=== PATIENT | female | born 1995 | race Caucasian/White ===

== ENCOUNTER → 2017-04-15 | Outpatient (CLI) | payer OTHER | LOC: HPND 10:30 | PROVIDERS: ATTEND Family Medicine | DX: O26.842 Uterine size-date discrepancy, second trimester (principal); O36.80X0 Pregnancy with inconclusive fetal viability, not applicable or unspecified; Z3A.14 14 weeks gestation of pregnancy | CPT/HCPCS: 76805 ==

== ENCOUNTER → 2017-05-15 | Outpatient (CLI) | payer OTHER | LOC: CDED 08:24 | PROVIDERS: ATTEND Family Medicine | DX: O24.111 Pre-existing type 2 diabetes mellitus, in pregnancy, first trimester (principal) | CPT/HCPCS: 97802 ==

== ENCOUNTER → 2017-05-23 | Outpatient (CLI) | payer OTHER, MEDICAID | LOC: HPND 09:26 | PROVIDERS: ATTEND Family Medicine | DX: O26.842 Uterine size-date discrepancy, second trimester (principal); O44.02 Complete placenta previa NOS or without hemorrhage, second trimester; Z3A.00 Weeks of gestation of pregnancy not specified | CPT/HCPCS: 76816 ==

== ENCOUNTER → 2017-07-24 | Outpatient (CLI) | payer MEDICAID | LOC: HPND 09:26 | PROVIDERS: ATTEND Family Medicine | DX: O35.1XX0 Maternal care for (suspected) chromosomal abnormality in fetus, not applicable or unspecified (principal) | CPT/HCPCS: 76816 ==

== ENCOUNTER 2017-08-05 17:15 | Emergency (ER) | payer MEDICAID ==
[~2017-08-05 17:15] MED LIST: ACCUMIS25; BLOOD GLUCOSE M1 KIT; BLOOD GLUCOSE T1 TES; GLIP5TAB8 PO; HYDR2.5O TOPICAL; PREN29TA PO
--- NOTE | 2017-08-05 17:50 | PD ---
HPI Chief Complaint Decreased Movement Date Seen: Aug 05, 2017 Travel History International Travel<30 Days: No Contact w/Intl Traveler<30Days: No History of Present Illness HPI Ms. Abreu is a 22-year-old female at 30/6 with an RESHMA of 10/08/17 based on first trimester ultrasound presents to the [facility] with the CC of decreased movement. She reports that over the last 2 days she is conducted kick counts every 2 hours and has not reached her goal of 10 kicks per 2 hours. She reports today she counted around 0900 10 kicks and then again at 1500 with 6 kicks. She is worried that something is wrong as her baby is typically very active, especially overnight which she was not active per her report last night. Otherwise she has no complaints and denies a complete review of systems. She endorses no loss of fluid, contractions, vaginal discharge, or vaginal bleeding at this time. She also denies any headaches, right upper quadrant pain , pitting edema, or other neurological symptoms. She does endorse a history of diabetes mellitus and currently takes glipizide twice a day. Unfortunately, due to insurance restrictions she is unable to monitor her glucose. She states that early in when she was monitoring her glucose her fasting glucose range from 70-90 with her postprandials ranging from 140-160. Para: 0 : 1 History Past Medical History Narrative Medical Past Medical History: Diabetes mellitus Obstetric History Obstetric History OB History: History of irregular menstrual cycles with unknown LMP prior to presentation today, best estimate is around 02/01/2017 No history of STDs Past Surgical History Narrative Surgical Surgical History: Denies Family History Narrative Family History Family History: Family history significant for diabetes Social History Narrative Social History Social History: Patient is adopted Living Situation: Lives with boyfriend, feels safe at home Alcohol: Denies Tobacco: Denies Illicit: Denies Allergies-Medications (Allergen,Severity, Reaction): Coded Allergies: No Known Allergies (Unverified , 08/05/17) Review of Systems Except as stated in HPI: all other systems reviewed are Neg Physical Exam Narrative GENERAL: Well-nourished, well-developed patient. SKIN: Warm and dry. HEAD: Normocephalic and atraumatic. EYES: No scleral icterus. No injection or drainage. ENT: No nasal drainage noted. Mucous membranes pink. Airway patent. NECK: Supple, trachea midline. No JVD. CARDIOVASCULAR: Regular rate and rhythm without murmurs, gallops, or rubs. RESPIRATORY: Breath sounds equal bilaterally. No accessory muscle use. ABDOMEN/GI: Abdomen soft, non-tender, bowel sounds present, no rebound, no guarding Gravid to 30 GENITOURINARY: External Genitalia: intact and normal in appearance Uterine Contractions: None on FHT FHT's: Category: 1 Baseline: 150s Reactive: Positive Variability: Moderate Decels: None EXTREMITIES: No cyanosis or edema. BACK: Nontender without obvious deformity. No CVA tenderness. NEUROLOGICAL: Awake and alert. Motor and sensory grossly within normal limits. Five out of 5 muscle strength in all muscle groups. Normal speech. Data Data Vital Signs Reviewed: Yes [facility] Medical Record Reviewed: Yes Plan Ms. Abreu is a 22-year-old female at 30/6 with an RESHMA of 10/08/17 based on first trimester ultrasound presents to the [facility] with the CC of decreased movement. 1. IUP at 30 weeks -Exam reassuring -Encourage oral hydration and PNV -FHT category 1, reassuring -Continue routine OB care -Patient re-educated and given information on kick counts should. Encouraged mom to count when her baby is most active. Reassuring patient has had a kick count today that was 10 per 2 hours. 2. DM -Continue Glipizide 5mg BID -2 hour fasting glucose: 145 -Start weekly BPP and NST -Recommend high risk laboratory evaluations including LFTs, CBC, and A1c -Recommend high risk US with echo -Recommend EKG and eye exam as well -Patient to be discharged home and encouraged to follow up with PCP within 1 week. SDW: Dr. Vann Diagnosis Diagnosis: Primary Impression: 30 weeks gestation of Additional Impression: Diabetes mellitus Disposition: 01 DISCHARGE HOME Condition: Stable Patient Instructions: Movement (ED), General Instructions, Early Labor Signs (ED), Having Your Baby: The Labor Process (GEN), Gestational Diabetes Diet (GEN), Gestational Diabetes (ED) Mark Vu MD R2 Aug 05, 2017 17:50
[2017-08-21] MEDS ORDERED: LANCETS1 MI1 (17:12)
[2017-08-21] MEDS ORDERED: BLOOD GLUCOSE T1 TES (17:12)
[2017-08-21] MEDS ORDERED: GLIP5TAB8 PO (17:12)
[2017-08-21] MEDS ORDERED: GLUCMIS7 (17:12)
== END 2017-08-05 19:03 | disposition home or self-care (01) ==
LOC: HOBED 17:15
DX: O24.913 Unspecified diabetes mellitus in pregnancy, third trimester (principal); Z3A.30 30 weeks gestation of pregnancy
CPT/HCPCS: 82948; 99284

== ENCOUNTER 2017-09-30 20:02 | Inpatient (IN) | payer MEDICAID ==
[~2017-09-30] VITALS: Ht 149.9 cm; Wt 93.0 kg
[~2017-09-30 20:02] MED LIST changes: -ACCUMIS25; -BLOOD GLUCOSE M1 KIT; +GLUCMIS7; -HYDR2.5O TOPICAL; +LANCETS1 MI1
[2017-09-30 20:30] VITALS: BP 128/77; PULSE 81
[2017-09-30 20:45] VITALS: RESP 18; TEMP 98.2
[2017-09-30] MEDS ORDERED: SODIUM CHLOR 0.9% 1000 ML INJ 1,000 ML OTHER PRN (21:09)
[2017-09-30] MEDS ORDERED: LACTATED RINGER'S 1000 ML INJ 1,000 ML IV SCH (21:13)
[2017-09-30] MEDS ORDERED: LACTATED RINGER'S 1000 ML INJ 1,000 ML IV PRN (21:13)
[2017-09-30] MEDS ORDERED: LIDOCAINE HCL 1% 50 ML VIAL INFIL PRN (21:15)
[2017-09-30] MEDS ORDERED: SODIUM CHLORID 0.9% 500 ML INJ 500 ML IV PRN (21:15)
[2017-09-30] MEDS ORDERED: CITRIC ACID-SODIUM CITRATE LIQ 30 ML UDC PO SCH (21:15)
[2017-09-30] MEDS ORDERED: SODIUM CHLORIDE 0.9% FLUSH 10 ML FLUSH IV FLUSH PRN (21:15)
[2017-09-30] MEDS ORDERED: MINERAL OIL 10 ML VIAL TOPICAL PRN (21:15)
[2017-09-30] MEDS ORDERED: OXYTOCIN 30 UNITS-500ML PREMIX 500 ML IV ONE (21:15)
[2017-09-30] MEDS ORDERED: LIDOCAINE HCL 1% 50 ML VIAL I-DERMAL PRN (21:15)
--- NOTE | 2017-09-30 21:27 | HHI.HP ---
HPI Chief Complaint "Baby is getting ready to have bowel movement" Travel History International Travel<30 Days: No Contact w/Intl Traveler<30Days: No History of Present Illness HPI Patient is a 22 year old at 38/6 who presents today from [facility] for induction of labor. The patient states "they told me the baby is getting ready to have a bowel movement so they sent me over here." The [facility] reports notes "Incidental finding of prominent hyperechoic bowel" and recommends delivery at 39 weeks. She reports some occasional abdominal tightening "similar to fransisco simpson" which occurs approximately 3 times an hour. Denies large discharge of fluid from her vagina, some minimal whitish discharge noted to be normal for her . No dysuria, increase in frequency, change in smell or color. The patient denies nausea, vomiting, fever , chills, chest pain, shortness of breath. Mild constipation normal for her current . Weeks Gestation: 38 Para: 0 : 1 Miscarriage: 0 : 0 History Past Medical History Narrative Medical Diabetes mellitus Obstetric History Obstetric History History of irregular menstrual cycles with unknown LMP prior to presentation today, best estimate is around 02/01/2017 No history of STDs GBS - Past Surgical History Surgical History: No Previous Surgery Family History Family History: Negative Social History Alcohol Use: No Tobacco Use: No Substance Abuse: No Allergies-Medications (Allergen,Severity, Reaction): Coded Allergies: No Known Allergies (Unverified Adverse Reaction, Unknown, 09/11/17) Home Meds Active Scripts Blood-Glucose Meter (Blood Glucose Meter) 1 Each Each, UNIT BID, #1 Prov:Martha Puente MD, R3 08/21/17 Lancets (Lancets) 1 Mis Mis, EA .ROUTE DIRECTED for Blood Sugar Management, # 1 0 Refills test 2x/day Prov:Martha Puente MD, R3 08/21/17 Blood Glucose Test Strips (Blood Glucose Test Strips) Strips Strip, EA .ROUTE DIRECTED for Blood Sugar Management, #1 6 Refills Test up to 2x/day Prov:Martha Puente MD, R3 08/21/17 Glipizide (Glipizide) 5 Mg Tab, 5 MG PO BIDAC for Blood Sugar Management, #60 TAB 1 Refill Take 15 minutes before a meal Prov:Martha Puente MD, R3 08/21/17 Vit-Iron Carbonyl ( Plus Iron 29-1 mg) 1 Tab Tab, 1 TAB PO DAILY for Nutritional Supplement, #30 TAB 11 Refills Prov:Martha Puente MD, R3 04/03/17 Review of Systems General / Constitutional: No: Fever, Chills Eyes: No: Diploplia, Blurred Vision, Visual changes HENT: No: Headaches, Vertigo, Lightheadedness Cardiovascular: No: Chest Pain or Discomfort, Palpitations, Tachycardia Respiratory: No: Cough, Short of Breath, Wheezing Gastrointestinal: Constipation (minimal), No: Nausea, Vomiting, Diarrhea, Abdominal Pain, Hematemesis, Hematochezia, Changes in Bowel Habits Genitourinary: No: Urgency, Frequency, Dysuria, Hematuria Musculoskeletal: Cramping (3 times per hour), No: Limited ROM, Weakness Skin: No Rash, No Itching Neurologic: No: Weakness, Dizziness Psychiatric: No: Anxiety, Depression Endocrine: No: Heat Intolerance, Cold Intolerance, Polyuria Hematologic/Lymphatic: No Easy Bruising, No Lymph Node Enlargement Physical Exam Narrative GENERAL: Well-nourished, well-developed patient. SKIN: Warm and dry. HEAD: Normocephalic and atraumatic. EYES: No scleral icterus. No injection or drainage. ENT: No nasal drainage noted. Mucous membranes pink. Airway patent. NECK: Supple, trachea midline. No JVD. CARDIOVASCULAR: Regular rate and rhythm without murmurs, gallops, or rubs. RESPIRATORY: Breath sounds equal bilaterally. No accessory muscle use. BREASTS: Bilateral exam showed no masses , no retractions, no nipple discharge. ABDOMEN/GI: Abdomen soft, non-tender, bowel sounds present, no rebound, no guarding GENITOURINARY: External Genitalia: intact and normal in appearance Cervix: posterior Dilatation: 1 Effacement: 50 Station: -3 Presentation: vertex Membranes: intact Uterine Contractions: occasional FHT's: Category: 1 Baseline: 145 Reactive: yes Variability: moderate Decels: none EXTREMITIES: No cyanosis or edema. BACK: Nontender without obvious deformity. No CVA tenderness. NEUROLOGICAL: Awake and alert. Motor and sensory grossly within normal limits. Normal speech. Caprini VTE Risk Assessment Caprini VTE Risk Assessment: No/Low Risk (score <= 1) Caprini Risk Assessment Model Point Value = 1 Point Value = 2 Point Value = 3 Point Value = 5 Age 41-60 Minor surgery BMI > 25 kg/m2 Swollen legs Varicose veins or History of unexplained or recurrent spontaneous Oral contraceptives or hormone replacement Sepsis (< 1 month) Serious lung disease, including pneumonia (< 1 month) Abnormal pulmonary function Acute myocardial infarction Congestive heart failure (< 1 month) History of inflammatory bowel disease Medical patient at bed rest Age 61-74 Arthroscopic surgery Major open surgery (> 45 min) Laparoscopic surgery (> 45 min) Malignancy Confined to bed (> 72 hours) Immobilizing plaster cast Central venous access Age >= 75 History of VTE Family history of VTE Factor V Leiden Prothrombin [id number] Lupus anticoagulant Anticardiolipin antibodies Elevated serum homocysteine Heparin-induced thrombocytopenia Other congenital or acquired thrombophilia Stroke (< 1 month) Elective arthroplasty Hip, pelvis, or leg fracture Acute spinal cord injury (< 1 month) Prophylaxis Regimen Total Risk Factor Score Risk Level Prophylaxis Regimen 0-1 Low Early ambulation 2 Moderate Order ONE of the following: *Sequential Compression Device (SCD) *Heparin 5000 units SQ BID 3-4 Higher Order ONE of the following medications: *Heparin 5000 units SQ TID *Enoxaparin/Lovenox 40 mg SQ daily (WT < 150 kg, CrCl > 30 mL/min) *Enoxaparin/Lovenox 30 mg SQ daily (WT < 150 kg, CrCl > 10-29 mL/min) *Enoxaparin/Lovenox 30 mg SQ BID (WT < 150 kg, CrCl > 30 mL/min) AND/OR *Sequential Compression Device (SCD) 5 or more Highest Order ONE of the following medications: *Heparin 5000 units SQ TID (Preferred with Epidurals) *Enoxaparin/Lovenox 40 mg SQ daily (WT < 150 kg, CrCl > 30 mL/min) *Enoxaparin/Lovenox 30 mg SQ daily (WT < 150 kg, CrCl > 10-29 mL/min) *Enoxaparin/Lovenox 30 mg SQ BID (WT < 150 kg, CrCl > 30 mL/min) AND *Sequential Compression Device (SCD) Data Data Vital Signs Reviewed: Yes Group B Strep: Negative Assessment/Plan Problem List: (1) 38 weeks gestation of ICD Codes: Z3A.38 - 38 weeks gestation of Status: Acute Assessment and Plan Patient is a 22 year old at 38/6 who presented from [facility] with the recommendation of induction at 39 weeks due to "Incidental finding of prominent hyperechoic bowel". -Admit to Labor and delivery -FHT category 1, reassuring -Induction of labor and expectant delivery -cytotec 25 MCG Q4 hours Discussed with Dr. Frank and Smith Rosenberg MD R1 Sep 30, 2017 21:27
[2017-09-30] MEDS ORDERED: SODIUM CHLOR 0.9% 1000 ML INJ 1,000 ML IV PRN (21:33)
[2017-09-30 21:48] LABS: AUTOMATED NEUTROPHIL # 5.7 TH/MM3 (1.8-7.7); BASOPHIL # 0.1 TH/MM3 (0-0.2); BASOPHIL % 0.6 % (0.0-2.0); EOSINOPHIL # 0.2 TH/MM3 (0-0.4); EOSINOPHIL % 1.5 % (0.0-4.0); HEMATOCRIT 42.3 % (35.0-46.0); HEMOGLOBIN 14.6 GM/DL (11.6-15.3); LYMPH % 36.5 % (9.0-44.0); LYMPHOCYTE # 3.7 TH/MM3 (1.0-4.8); MEAN CELL VOLUME 85.4 FL (80.0-100.0); MEAN CORPUSCULAR HEMOGLOBIN 29.4 PG (27.0-34.0); MEAN CORPUSCULAR HGB CONC 34.5 % (32.0-36.0); MEAN PLATELET VOLUME 11.6 FL (7.0-11.0); MONOCYTE # 0.5 TH/MM3 (0-0.9); NEUT % 56.4 % (16.0-70.0); PLATELET COUNT 114 TH/MM3 (150-450); RED BLOOD COUNT 4.96 MIL/MM3 (4.00-5.30); RED CELL DISTRIBUTION WIDTH 14.3 % (11.6-17.2); WHITE BLOOD COUNT 10.1 TH/MM3 (4.0-11.0)
[2017-09-30 22:05] LABS: BACTERIA, URINE MOD /hpf; BILIRUBIN, URINE NEG (NEG); BLOOD, URINE NEG (NEG); GLUCOSE,URINE NEG (NEG); KETONE, URINE NEG (NEG); MUCUS URINE FEW /lpf (OCC); NITRITE,URINE NEG (NEG); PH, URINE 5.5 (5.0-8.5); SQUAMOUS EPITHELIAL CELL URINE 2 /hpf (0-5); URINE COLOR YELLOW (YELLW/STRAW); URINE LEUKOCYTE ESTERASE NEG (NEG)
[2017-09-30 23:53] VITALS: BP 119/81; PULSE 89
[2017-10-01] VITALS (69 sets, daily range): BP systolic 92–148; BP diastolic 46–108; PULSE 62–247; RESP 16–20; TEMP 98.1–99.4; O2SAT 96–100
[2017-10-01] MEDS: MISOPROSTOL 100 MCG TAB VAGINAL SCH ×4 (00:15→09:15)
[2017-10-01] MEDS: LACTATED RINGER'S 1000 ML INJ 1,000 ML IV SCH ×3 (00:15→19:08)
--- NOTE | 2017-10-01 00:45 | HHI.PR ---
Subjective Remarks OB Hg attending The patient is a 22-year-old with intrauterine now at 39.0. [facility] recommended induction of labor at 39 weeks due to prominent bowel. The patient is an A2 diabetic well controlled on glipizide 5 mg twice daily. She reports her fasting sugars of are typically in the 80s and her one-hour postprandials in the 130s. We discussed at length the risks of vaginal delivery including but not limited to show dystocia which is more common in diabetic patients. We discussed the [facility] recommendations of recommendation with estimated weight is greater than 10 pounds. The patient reports this may weight 2 weeks ago of 6 lbs. 15 oz. We discussed the risks of shoulder dystocia should it occur including but not limited to permanent and irreversible neurological injury or brain damage. The patient acknowledges these risks and is willing for a trial of labor. The patient reports she is GBS negative. All the patient is questions were answered. Objective Vital Signs Date Time Temp Pulse Resp B/P (MAP) Pulse Ox O2 Delivery O2 Flow Rate FiO2 10/01/17 00:00 98.2 18 09/30/17 23:53 89 119/81 (94) 09/30/17 20:45 98.2 18 09/30/17 20:30 81 128/77 (94) Result Diagram: 09/30/172044 Larissa Joseph MD Oct 01, 2017 00:45
[2017-10-01] MEDS ORDERED: INSULIN NovoLIN REGULAR SUPPLEMENTAL SCALE SQ SCH (08:00)
[2017-10-01] MEDS: ONDANSETRON HCL 4 MG/2 ML VIAL IV PUSH PRN ×2 (08:33→19:08)
[2017-10-01] MEDS ORDERED: SODIUM CHLORIDE 0.9% FLUSH 10 ML FLUSH IV FLUSH SCH (09:00)
--- NOTE | 2017-10-01 11:22 | PD.LABORPN ---
Subjective Subjective Pt lying in bed. Feeling contractions. Doing well. Objective Vital Signs Vital Signs Date Time Temp Pulse Resp B/P (MAP) Pulse Ox O2 Delivery O2 Flow Rate FiO2 10/01/17 11:00 18 10/01/17 10:05 18 10/01/17 09:53 71 18 117/64 (81) 10/01/17 09:00 18 10/01/17 07:30 18 10/01/17 07:30 98.4 10/01/17 07:23 97 120/76 (91) 10/01/17 06:00 98.2 18 10/01/17 05:59 112 120/87 (98) 10/01/17 04:30 16 10/01/17 04:16 83 125/81 (96) Objective Pelvic Exam: Cervix: soft Dilatation: 5 Effacement: 80 Station: -2 Presentation: vertex Membranes: AROM performed Uterine Contractions: q2 minutes FHT's: Category: 1 Baseline: 150 Reactive: yes Variability: moderate Decels: none Weeks Gestation: 38 Pt started active labor?: No Medical induction of labor?: Yes Artificial rupture of membrane: Yes Assessment/Plan Problem List: (1) 38 weeks gestation of ICD Codes: Z3A.38 - 38 weeks gestation of Status: Acute Assessment and Plan 22 y/o G1 at 39 weeks admitted for induction of labor. Pt s/p Cytotec Category 1 FHT Cervical exam: 5/80/-2 -Bedside ultrasound performed confirmed cephalic presentation -IUPC and FSE placed -Continue accuchecks for GDM -Continuous FHT -Anticipate vaginal delivery Michael Crain MD Oct 01, 2017 11:22
[2017-10-01] MEDS ORDERED: ePHEDrine/NS 25 MG/5 ML SYRINGE ONE ×2 (13:39→13:50)
[2017-10-01] MEDS ORDERED: fentaNYL 2MCG-BUPIV 0.125% INJ 100 ML ONE (13:39)
[2017-10-01] MEDS ORDERED: BUPIVACAINE HCL PF 0.25% 10 ML VIAL ONE (13:50)
[2017-10-01] MEDS ORDERED: ePHEDrine/NS 25 MG/5 ML SYRINGE IV PUSH PRN (14:30)
[2017-10-01] MEDS ORDERED: DO NOT ADMINISTER ANTICOAGULANTS PRN (14:30)
[2017-10-01] MEDS ORDERED: NO SYSTEM NARCOTICS PRN (14:30)
[2017-10-01] MEDS ORDERED: fentaNYL 2MCG-BUPIV 0.125% 100 ML EPIDURAL SCH (14:30)
--- NOTE | 2017-10-01 15:03 | PD.LABORPN ---
Subjective Subjective Patient resting comfortably in bed. Epidural in place. No acute concerns at this time. Objective Vital Signs Vital Signs Date Time Temp Pulse Resp B/P (MAP) Pulse Ox O2 Delivery O2 Flow Rate FiO2 10/01/17 14:22 18 10/01/17 14:20 86 122/77 (92) 10/01/17 14:20 74 10/01/17 14:18 84 113/69 (84) 10/01/17 14:15 94 102/66 (78) 10/01/17 14:15 96 10/01/17 14:13 96 118/77 (91) 10/01/17 14:10 247 10/01/17 14:10 88 128/79 (95) 10/01/17 14:05 87 128/77 (94) 10/01/17 14:04 18 10/01/17 14:00 98.4 10/01/17 14:00 69 10/01/17 14:00 86 121/76 (91) 10/01/17 13:55 18 10/01/17 13:55 89 125/81 (96) 10/01/17 13:55 90 10/01/17 13:00 18 10/01/17 11:45 71 18 106/64 (78) 10/01/17 11:45 98.4 10/01/17 11:00 18 10/01/17 10:05 18 10/01/17 09:53 71 18 117/64 (81) 10/01/17 09:00 18 10/01/17 07:30 18 10/01/17 07:30 98.4 10/01/17 07:23 97 120/76 (91) Objective Pelvic Exam: Cervix: [-] Dilatation: [-] Effacement: [-] Station: [-] Presentation: [-] Membranes: AROM Uterine Contractions: q2-3min FHT's: Category: 1 Baseline: 145 Reactive: accels present Variability: moderate Decels: none Weeks Gestation: 39 Pt started active labor?: No Medical induction of labor?: Yes (per MFM due to possible meconium in fluid on ultrasound and prominent hyperechoic bowel) Artificial rupture of membrane: Yes (clear) Artificial ROM date: Oct 01, 2017 Artifical ROM time: 10:30 Assessment/Plan Problem List: (1) 38 weeks gestation of ICD Codes: Z3A.38 - 38 weeks gestation of Status: Acute Plan: 22 y/o at 39/0 admitted of induction of labor per MFM due to possible meconium in amniotic fluid and prominent hyperechoic bowel 1. IUP: * cat 1 tracing reassuring * s/p cytotec * repeat pelvic exam once gonzalez is placed * good contraction pattern, labor augmentation not needed at this time * AROM with clear fluids * s/p IUPC and FSE 2. GBS negative 3. DM 2 controlled with glipizide * continue accuchecks Expect vaginal delivery dw Dr. Fernandez (2) Type 2 diabetes mellitus during , antepartum ICD Codes: O24.119 - Pre-existing type 2 diabetes mellitus, in , unspecified trimester Martha Puente MD, R3 Oct 01, 2017 15:03
[2017-10-01] MEDS ORDERED: OXYTOCIN 30 UNITS-500ML PREMIX 500 ML ONE ×2 (16:33→21:25)
[2017-10-01] MEDS ORDERED: OXYTOCIN 30 UNITS/NS 500ML PREMIX IV PRN (17:00)
[2017-10-01] MEDS ORDERED: LIDOCAINE HCL 1.5% PF SOLN 20 ML AMP ONE (18:36)
--- NOTE | 2017-10-01 18:59 | PD.LABORPN ---
Subjective Subjective Patient resting comfortably in bed, in no acute distress. No acute concerns at this time Objective Vital Signs Vital Signs Date Time Temp Pulse Resp B/P (MAP) Pulse Ox O2 Delivery O2 Flow Rate FiO2 10/01/17 18:44 98.4 18 10/01/17 18:30 86 126/71 (89) 10/01/17 18:15 18 10/01/17 18:00 95 148/98 (115) 10/01/17 17:45 18 10/01/17 17:31 76 112/62 (79) 10/01/17 17:07 18 10/01/17 17:00 75 105/64 (78) 10/01/17 16:45 18 10/01/17 16:40 67 101/46 (64) 10/01/17 16:35 70 10/01/17 16:30 145/108 (120) 10/01/17 16:30 78 10/01/17 16:15 18 10/01/17 16:10 77 10/01/17 16:05 70 10/01/17 16:00 130/77 (94) 10/01/17 16:00 66 10/01/17 15:42 18 10/01/17 15:40 65 10/01/17 15:35 67 10/01/17 15:30 98.5 65 122/71 (88) 10/01/17 15:25 62 10/01/17 15:20 64 10/01/17 15:15 77 123/74 (90) 10/01/17 15:00 18 10/01/17 14:55 77 10/01/17 14:50 77 10/01/17 14:45 69 117/62 (80) 10/01/17 14:40 81 10/01/17 14:35 80 10/01/17 14:30 86 119/71 (87) 10/01/17 14:22 18 10/01/17 14:20 86 122/77 (92) 10/01/17 14:20 74 10/01/17 14:18 84 113/69 (84) 10/01/17 14:15 94 102/66 (78) 10/01/17 14:15 96 10/01/17 14:13 96 118/77 (91) 10/01/17 14:10 247 10/01/17 14:10 88 128/79 (95) 10/01/17 14:05 87 128/77 (94) 10/01/17 14:04 18 10/01/17 14:00 98.4 10/01/17 14:00 69 10/01/17 14:00 86 121/76 (91) 10/01/17 13:55 18 10/01/17 13:55 89 125/81 (96) 10/01/17 13:55 90 10/01/17 13:00 18 10/01/17 11:45 71 18 106/64 (78) 10/01/17 11:45 98.4 10/01/17 11:00 18 Objective Pelvic Exam: based on last check at 1800 by nurse Cervix: [-] Dilatation: 8 Effacement: 90 Station: -2 Presentation: vertex Membranes: AROM Uterine Contractions: q2-4min FHT's: Category: 1 Baseline: 150 Reactive: [-] Variability: moderate Decels: none Weeks Gestation: 39 Pt started active labor?: No Medical induction of labor?: Yes (per MFM due to possible meconium in fluid on ultrasound and prominent hyperechoic bowel) Artificial rupture of membrane: Yes (clear) Artificial ROM date: Oct 01, 2017 Artifical ROM time: 10:30 Assessment/Plan Problem List: (1) 38 weeks gestation of ICD Codes: Z3A.38 - 38 weeks gestation of Status: Acute Plan: 22 y/o at 39/0 admitted of induction of labor per MFM due to possible meconium in amniotic fluid and prominent hyperechoic bowel 1. IUP: * cat 1 tracing reassuring, there may * s/p cytotec * dilation unchanged, concern for possible failure to progress * labor augmentation with pitocin * AROM with clear fluids * s/p IUPC and FSE 2. GBS negative 3. DM 2 controlled with glipizide * continue accuchecks Hopeful for vaginal delivery but patient will need a C/S if she does not have significant change in the next hour or so. dw Dr. Fernandez (2) Type 2 diabetes mellitus during , antepartum ICD Codes: O24.119 - Pre-existing type 2 diabetes mellitus, in , unspecified trimester Martha Puente MD, R3 Oct 01, 2017 18:59
[2017-10-01] MEDS ORDERED: MORPHINE SULFATE PF 5 MG/10 ML VIAL ONE (19:44)
[2017-10-01] MEDS: CEFAZOLIN INJ 2,000 MG in SODIUM CHLORIDE 0.9% INJ 100 ML IV SCH ×2 (20:00→21:00)
[2017-10-01] MEDS ORDERED: EPIDURAL-NO SYSTEMIC NARCOTICS PRN ×2 (20:30→20:45)
[2017-10-01] MEDS ORDERED: EPIDURAL-DIPHENHYDRAMINE HCL 50 MG/ML VIAL IV PUSH PRN ×2 (20:30→20:45)
[2017-10-01] MEDS ORDERED: EPIDURAL-DIPHENHYDRAMINE HCL 50 MG CAP PO PRN ×2 (20:30→20:45)
[2017-10-01] MEDS ORDERED: EPIDURAL-NALOXONE HCL 0.4 MG/ML AMP IV PUSH PRN ×2 (20:30→20:45)
[2017-10-01] MEDS ORDERED: EPIDURAL-DO NOT ADMINISTER ANTICOAGULANTS PRN ×2 (20:30→20:45)
[2017-10-01] MEDS ORDERED: SODIUM CHLORIDE 0.9% FLUSH 10 ML FLUSH IV FLUSH PRN (21:00)
[2017-10-01] MEDS ORDERED: OXYTOCIN 30 UNITS-500ML PREMIX 500 ML IV ONE (21:00)
[2017-10-01] MEDS ORDERED: oxyCODONE/ACETAMINOPHEN 5 MG/325 MG TAB PO PRN (21:00)
[2017-10-01] MEDS ORDERED: ACETAMINOPHEN 325 MG TAB PO PRN (21:00)
[2017-10-01] MEDS: SODIUM CHLORIDE 0.9% FLUSH 10 ML FLUSH IV FLUSH SCH (21:00)
[2017-10-01] MEDS ORDERED: ACETAMINOPHEN 1000 MG/100 ML 100 ML IV ONE (21:33)
[2017-10-01] MEDS ORDERED: KETOROLAC TROMETHAMINE 60 MG/2 ML (IM) VIAL IM ONE ×2 (22:04→22:21)
[2017-10-02] VITALS (10 sets, daily range): BP systolic 101–123; BP diastolic 60–77; PULSE 68–93; RESP 16–20; TEMP 97.7–98.6; O2SAT 97
[2017-10-02] MEDS ORDERED: LACTATED RINGER'S 1000 ML INJ 1,000 ML IV SCH (01:59)
[2017-10-02] MEDS: ONDANSETRON HCL 4 MG/2 ML VIAL IV PUSH PRN ×2 (02:15→07:24)
[2017-10-02 04:14] LABS: AUTOMATED NEUTROPHIL # 19.7 TH/MM3 (1.8-7.7); BASOPHIL % 0.1 % (0.0-2.0); HEMATOCRIT 34.9 % (35.0-46.0); LYMPH % 10.2 % (9.0-44.0); LYMPHOCYTE # 2.4 TH/MM3 (1.0-4.8); MEAN CELL VOLUME 85.4 FL (80.0-100.0); MEAN CORPUSCULAR HEMOGLOBIN 29.3 PG (27.0-34.0); MEAN CORPUSCULAR HGB CONC 34.3 % (32.0-36.0); MEAN PLATELET VOLUME 10.6 FL (7.0-11.0); MONO % 5.2 % (0.0-8.0); MONOCYTE # 1.2 TH/MM3 (0-0.9); NEUT % 84.5 % (16.0-70.0); PLATELET COUNT 92 TH/MM3 (150-450); RED BLOOD COUNT 4.09 MIL/MM3 (4.00-5.30); RED CELL DISTRIBUTION WIDTH 14.4 % (11.6-17.2); WHITE BLOOD COUNT 23.3 TH/MM3 (4.0-11.0)
[2017-10-02 04:33] LABS: BICARBONATE 21.8 MEQ/L (21.0-32.0); CREATININE 0.94 MG/DL (0.50-1.00)
[2017-10-02] MEDS: CEFAZOLIN INJ 2,000 MG in SODIUM CHLORIDE 0.9% INJ 100 ML IV SCH ×3 (05:00→14:45)
[2017-10-02] MEDS ORDERED: OXYTOCIN 30 UNITS-500ML PREMIX 500 ML IV PRN (07:00)
[2017-10-02] MEDS: oxyCODONE/ACETAMINOPHEN 5 MG/325 MG TAB PO PRN ×2 (07:25→20:07)
--- NOTE | 2017-10-02 07:45 | HHI.OB ---
Subjective Remarks 22 year old female s/p C/S due failure to progress and decels at 39 wks gestation, POD1. AFVSS. Patient reports she is feeling well. Bleeding is decreasing and pain is well-controlled. She is breast and formula feeding. Baby currently in the NICU. Ambulating without difficulties. She is having nausea and vomiting x1 this AM.. She has not had a bowel movement. She has not passed gas. Denies chest pain, dysuria, shortness of breath, or calf pain. Objective Vitals/I&O Vital Signs Date Time Temp Pulse Resp B/P (MAP) Pulse Ox O2 Delivery O2 Flow Rate FiO2 10/02/17 05:57 18 10/02/17 04:26 16 10/02/17 04:00 97.7 10/02/17 04:00 68 117/73 (88) 97 10/02/17 02:42 18 10/02/17 02:30 18 10/02/17 00:40 18 10/02/17 00:30 18 10/01/17 23:07 68 20 131/63 (85) 96 10/01/17 23:07 98.9 10/01/17 22:30 96 18 121/62 (81) 98 10/01/17 22:28 99.4 10/01/17 22:15 96 18 112/58 (76) 97 10/01/17 22:00 86 18 98 10/01/17 22:00 110/56 (74) 10/01/17 21:45 18 10/01/17 21:45 100 10/01/17 21:45 96 115/59 (77) 10/01/17 21:30 100 10/01/17 21:30 85 109/55 (73) 10/01/17 21:30 20 10/01/17 21:15 100 10/01/17 21:15 116/56 (76) 10/01/17 21:10 99 10/01/17 21:10 118/64 (82) 10/01/17 21:10 98.6 117 20 10/01/17 19:34 18 10/01/17 19:31 117 92/52 (65) 10/01/17 19:30 98.4 18 10/01/17 19:17 104 118/71 (87) 10/01/17 19:15 18 10/01/17 19:00 98 127/78 (94) 10/01/17 18:44 98.4 18 10/01/17 18:30 86 126/71 (89) 10/01/17 18:15 18 10/01/17 18:00 95 148/98 (115) 10/01/17 17:45 18 10/01/17 17:31 76 112/62 (79) 10/01/17 17:07 18 10/01/17 17:00 75 105/64 (78) 10/01/17 16:45 18 10/01/17 16:40 67 101/46 (64) 10/01/17 16:35 70 10/01/17 16:30 145/108 (120) 10/01/17 16:30 78 10/01/17 16:15 18 10/01/17 16:10 77 10/01/17 16:05 70 10/01/17 16:00 130/77 (94) 10/01/17 16:00 66 10/01/17 15:42 18 10/01/17 15:40 65 10/01/17 15:35 67 10/01/17 15:30 98.5 65 122/71 (88) 10/01/17 15:25 62 10/01/17 15:20 64 10/01/17 15:15 77 123/74 (90) 10/01/17 15:00 18 10/01/17 14:55 77 10/01/17 14:50 77 10/01/17 14:45 69 117/62 (80) 10/01/17 14:40 81 10/01/17 14:35 80 10/01/17 14:30 86 119/71 (87) 10/01/17 14:22 18 10/01/17 14:20 86 122/77 (92) 10/01/17 14:20 74 10/01/17 14:18 84 113/69 (84) 10/01/17 14:15 94 102/66 (78) 10/01/17 14:15 96 10/01/17 14:13 96 118/77 (91) 10/01/17 14:10 247 10/01/17 14:10 88 128/79 (95) 10/01/17 14:05 87 128/77 (94) 10/01/17 14:04 18 10/01/17 14:00 98.4 10/01/17 14:00 69 10/01/17 14:00 86 121/76 (91) 10/01/17 13:55 18 10/01/17 13:55 89 125/81 (96) 10/01/17 13:55 90 10/01/17 13:00 18 10/01/17 11:45 71 18 106/64 (78) 10/01/17 11:45 98.4 10/01/17 11:00 18 10/01/17 10:05 18 10/01/17 09:53 71 18 117/64 (81) 10/01/17 09:00 18 Result Diagram: 10/02/17 0350 10/02/17 0350 Objective Remarks GENERAL: Well-nourished, well-developed patient. CARDIOVASCULAR: Regular rate and rhythm without murmurs, gallops, or rubs. RESPIRATORY: Breath sounds equal bilaterally. No accessory muscle use. ABDOMEN/GI: Abdomen soft, non-tender, bowel sounds present. Incision: Clean, dry and intact. Fundus: Firm, non-tender at umbilicus. GENITOURINARY: Light to moderate bleeding. EXTREMITIES: No cyanosis or edema, non-tender, without signs of DVT. Medications and IVs Current Medications Medications (Trade) Dose Ordered Sig/Kay Route Start Time Stop Time Status Last Admin Lactated Ringer's 1,000 ml @ 100 mls/hr Q10H IV 10/02/17 01:59 10/02/17 21:58 10/01/17 23:40 Oxytocin 500 ml @ 100 mls/hr UNSCH X1 PRN IV 10/02/17 07:00 10/03/17 06:59 (NS Flush) 2 ml BID IV FLUSH 10/01/17 21:00 (NS Flush) 2 ml UNSCH PRN IV FLUSH 10/01/17 21:00 (Tylenol) 650 mg Q6H PRN PO 10/01/17 21:00 (Motrin) 600 mg Q6H PRN PO 10/01/17 21:00 (Percocet 5-325 Mg) 1 tab Q4H PRN PO 10/01/17 21:00 10/02/17 07:25 (Percocet 5-325 Mg) 2 tab Q4H PRN PO 10/01/17 21:00 (M-M-R Ii Inj) 0.5 ml ONCE ONCE SQ 10/02/17 16:00 10/02/17 16:01 (Zofran Inj) 4 mg Q6H PRN IV PUSH 10/01/17 21:00 10/02/17 07:24 Cefazolin Sodium 2000 mg/Sodium Chloride 120 ml @ 100 mls/hr Q8H IV 10/02/17 04:00 10/02/17 13:11 10/02/17 05:52 Assessment/Plan Problem List: (1) 38 weeks gestation of ICD Codes: Z3A.38 - 38 weeks gestation of Status: Acute Plan: 22yo female s/p C/S, POD 1 - AFVSS - Continue routine care - Motrin and Percocet PRN pain - Encourage OOB - Pelvic rest x 6 wks. Will need 1 week incision check. - Contraception: Undecided - Anticipate D/C in 2 days (2) Type 2 diabetes mellitus during , antepartum ICD Codes: O24.119 - Pre-existing type 2 diabetes mellitus, in , unspecified trimester Plan: -Glucose 116 -Continue to monitor Valencia Richard MD R1 Oct 02, 2017 07:45
--- NOTE | 2017-10-02 13:28 | MP ---
cc: PATRICK FERNANDEZ MD DATE OF SURGERY 10/01/2017 PREOPERATIVE DIAGNOSIS Failure to progress, failed induction, non-reassuring heart rate tracing, gestational diabetes, hyperechoic bowel. POSTOPERATIVE DIAGNOSIS Failure to progress, failed induction, non-reassuring heart rate tracing, gestational diabetes, hyperechoic bowel. PROCEDURE PERFORMED A primary low transverse section. SURGEON Patrick Fernandez Md FRONT OFFICE ASSOCIATE Dr. Vargas of [facility] ANESTHESIA Epidural PREOPERATIVE NOTE The patient is a 22-year-old at 39 weeks who presents as a referral from [facility] for induction at 39 weeks for hyperechoic bowel. This is the recommendation of maternal medicine. The patient has gestational diabetes diet controlled. She was induced, achieved a cervical dilation to 7 cm and then there was no further change her cervix over a 4-5-hour period and the heart rate tracing began having very large late decelerations and variables. The patient had failed induction and was taken for section. PROCEDURE The patient was taken to the operating room, placed in the supine position on the operating table. Adequate epidural anesthesia was administered. She was prepped and draped and a Pfannenstiel incision was made in the lower abdomen, carried through the fascia sharply. The fascia was dissected off the rectus muscle and the rectus split in the midline. The peritoneal cavity entered sharply. The incision was extended superiorly and inferiorly and stretched open. A bladder blade placed at the lower edge of the incision. The visceral peritoneum reflected off the lower uterine segment and placed behind the bladder blade. A transverse hysterotomy was made and entered bluntly bilaterally and the baby was delivered at 2020, a male infant, weight 3570 grams, 8/9. There were no complications. Baby's cord pH 7.19. Cord blood obtained. Placenta manually extracted. The uterus exteriorized. The hysterotomy closed in a running layer of chromic followed by imbricating suture of same. Hemostasis was achieved. The uterus was replaced in the peritoneal cavity. Blood suctioned from the cul-de-sac and gutters. The parietal peritoneum closed in a running layer of 2-0 Vicryl. The fascia was then closed in a running layer of 0-Vicryl. Subcutaneous tissues were reapproximated with 3-0 running plain suture and the skin closed with a 3-0 Monocryl in a running subcuticular stitch. Pressure dressing applied. The estimated blood loss was 500 cc. There were no complications. The sponge and needle counts were correct times two and the patient sent to recovery in stable condition. MD PEGGY Mcelroy/DARWIN /9:11 PM /1:18 PM
[2017-10-02] MEDS: glipiZIDE 5 MG TAB PO SCH (15:54)
[2017-10-02] MEDS ORDERED: MEASLES, MUMPS, RUBELLA VACCINE 0.5 ML VIAL SQ ONE (16:00)
[2017-10-02] MEDS: IBUPROFEN 600 MG TAB PO PRN (20:06)
[2017-10-02] MEDS: SODIUM CHLORIDE 0.9% FLUSH 10 ML FLUSH IV FLUSH SCH (21:00)
[2017-10-03] MEDS: oxyCODONE/ACETAMINOPHEN 5 MG/325 MG TAB PO PRN ×4 (04:34→21:32)
[2017-10-03] MEDS: IBUPROFEN 600 MG TAB PO PRN ×3 (04:34→21:32)
[2017-10-03] MEDS: glipiZIDE 5 MG TAB PO SCH ×2 (07:16→16:00)
--- NOTE | 2017-10-03 07:24 | HHI.OB ---
Subjective Post Operative Day: 2 Remarks 22 year old female s/p C/S due failure to progress and decels at 39 wks gestation, POD2. AFVSS. Patient reports she is feeling well. Bleeding is minimal and pain is well-controlled. She is breast and formula feeding. Baby currently in the NICU. Ambulating without difficulties. She denies N/V. She has not had a bowel movement. She has passed gas. Denies chest pain, dysuria, shortness of breath, or calf pain. Objective Vitals/I&O Vital Signs Date Time Temp Pulse Resp B/P (MAP) Pulse Ox O2 Delivery O2 Flow Rate FiO2 10/02/17 22:18 101/60 (74) 10/02/17 22:18 98.6 93 20 10/02/17 15:30 98.2 88 18 113/74 (87) 10/02/17 08:30 98.2 83 16 123/77 (92) Result Diagram: 10/02/17 0350 10/02/17 0350 Objective Remarks GENERAL: Well-nourished, well-developed patient. CARDIOVASCULAR: Regular rate and rhythm without murmurs, gallops, or rubs. RESPIRATORY: Breath sounds equal bilaterally. No accessory muscle use. ABDOMEN/GI: Abdomen soft, non-tender, bowel sounds present. Incision: Clean, dry and intact. Fundus: Firm, non-tender at umbilicus. GENITOURINARY: Light to moderate bleeding. EXTREMITIES: No cyanosis or edema, non-tender, without signs of DVT. Medications and IVs Current Medications Medications (Trade) Dose Ordered Sig/[facility] Route Start Time Stop Time Status Last Admin (NS Flush) 2 ml BID IV FLUSH 10/01/17 21:00 (NS Flush) 2 ml UNSCH PRN IV FLUSH 10/01/17 21:00 (Tylenol) 650 mg Q6H PRN PO 10/01/17 21:00 (Motrin) 600 mg Q6H PRN PO 10/01/17 21:00 10/03/17 04:34 (Percocet 5-325 Mg) 1 tab Q4H PRN PO 10/01/17 21:00 10/03/17 04:34 (Percocet 5-325 Mg) 2 tab Q4H PRN PO 10/01/17 21:00 (Zofran Inj) 4 mg Q6H PRN IV PUSH 10/01/17 21:00 10/02/17 07:24 (Glucotrol) 5 mg BIDAC PO 10/02/17 16:00 10/03/17 07:16 Assessment/Plan Problem List: (1) 38 weeks gestation of ICD Codes: Z3A.38 - 38 weeks gestation of Status: Acute Plan: 22yo female s/p C/S due to failure to progress and late decels, POD 2 - AFVSS - Continue routine care - Motrin and Percocet PRN pain - Encourage OOB - Pelvic rest x 6 wks. Will need 1 week incision check. - Contraception: oral contraceptive - Anticipate D/C tomorrow (2) Type 2 diabetes mellitus during , antepartum ICD Codes: O24.119 - Pre-existing type 2 diabetes mellitus, in , unspecified trimester Plan: -Continue Glipizide 5mg PO BID Valencia Richard MD R1 Oct 03, 2017 07:24
[2017-10-03 08:00] VITALS: BP 112/78; PULSE 92; RESP 18; TEMP 97.8; O2SAT 96
[2017-10-03] MEDS: SODIUM CHLORIDE 0.9% FLUSH 10 ML FLUSH IV FLUSH SCH (19:50)
[2017-10-03 20:00] VITALS: BP 116/68; PULSE 83; RESP 20; TEMP 98.4; O2SAT 98
[2017-10-04] MEDS: oxyCODONE/ACETAMINOPHEN 5 MG/325 MG TAB PO PRN ×2 (03:13→13:01)
[2017-10-04] MEDS: IBUPROFEN 600 MG TAB PO PRN ×2 (03:13→13:01)
[2017-10-04] MEDS ORDERED: OXYC1TAB63 PO (07:56)
[2017-10-04] MEDS ORDERED: IBUP-232 PO (07:56)
[2017-10-04] MEDS ORDERED: SENN8.6T88 PO (07:56)
[2017-10-04 08:00] VITALS: BP 135/86; PULSE 107; RESP 18; TEMP 98; O2SAT 98
--- NOTE | 2017-10-04 08:05 | HHI.OB ---
Subjective Post Operative Day: 3 Remarks Postoperative day number 3. AFVSS overnight. Pain controlled with medications. Incision not draining. Decreased lochia. Denies dysuria. No breast tenderness. She is feeding the baby via breast/bottle. Appetite good. No nausea or vomiting. Endorses flatus. No bowel movement. Ambulating well. Denies calf pain, shortness of breath, or cough. Otherwise, she is doing well this morning and has no other complaints. (Michael Crain MD) Remarks Patient seen and evaluated with resident under direct supervision, agree with assessment and plan. (Mark Aclala MD) Objective Vitals/I&O Vital Signs Date Time Temp Pulse Resp B/P (MAP) Pulse Ox O2 Delivery O2 Flow Rate FiO2 10/03/17 20:00 98.4 20 98 10/03/17 20:00 83 116/68 (84) (Michael Crain MD) Result Diagram: 10/02/17 0350 10/02/17 0350 Objective Remarks GENERAL: Well-nourished, well-developed patient. CARDIOVASCULAR: Regular rate and rhythm without murmurs, gallops, or rubs. RESPIRATORY: Breath sounds equal bilaterally. No accessory muscle use. ABDOMEN/GI: Abdomen soft, non-tender, bowel sounds present. Incision: Clean, dry and intact. Fundus: Firm, non-tender at umbilicus. GENITOURINARY: Light to moderate bleeding. EXTREMITIES: No cyanosis or edema, non-tender, without signs of DVT. Medications and IVs Current Medications Medications (Trade) Dose Ordered Sig/[facility] Route Start Time Stop Time Status Last Admin (NS Flush) 2 ml BID IV FLUSH 10/01/17 21:00 (NS Flush) 2 ml UNSCH PRN IV FLUSH 10/01/17 21:00 (Tylenol) 650 mg Q6H PRN PO 10/01/17 21:00 (Motrin) 600 mg Q6H PRN PO 10/01/17 21:00 10/04/17 03:13 (Percocet 5-325 Mg) 1 tab Q4H PRN PO 10/01/17 21:00 10/04/17 03:13 (Percocet 5-325 Mg) 2 tab Q4H PRN PO 10/01/17 21:00 (Zofran Inj) 4 mg Q6H PRN IV PUSH 10/01/17 21:00 10/02/17 07:24 (Glucotrol) 5 mg BIDAC PO 10/02/17 16:00 10/03/17 16:00 (Michael Crain MD) Assessment/Plan Problem List: (1) 38 weeks gestation of ICD Codes: Z3A.38 - 38 weeks gestation of Status: Acute Plan: 22yo female s/p C/S due to failure to progress and late decels, POD 3 - AFVSS - Continue routine care - Motrin and Percocet PRN pain - Encourage OOB - Pelvic rest x 6 wks. Will need 1 week incision check. - Contraception: oral contraceptives - Anticipate D/C today (2) Type 2 diabetes mellitus during , antepartum ICD Codes: O24.119 - Pre-existing type 2 diabetes mellitus, in , unspecified trimester Plan: -Continue Glipizide 5mg PO BID (Michael Crain MD) Michael Crain MD Oct 04, 2017 08:05 Mark Alcala MD Oct 04, 2017 09:59
--- NOTE | 2017-10-04 08:07 | HHI.DCPOC ---
Discharge Care Plan Diagnosis: (1) care following delivery Report Symptoms to Your Doctor -Temperature above 100.5 degrees -Redness, of incision or excessive or foul smelling drainage -Unusual pain or calf pain -Increased vaginal bleeding -Painful or difficulty urinating -Feelings of extreme sadness or anxiety after 2 weeks Goals to Promote Your Health * To prevent worsening of your condition and complications * To maintain your health at the optimal level Directions to Meet Your Goals Take your medications as prescribed Follow your dietary instruction Follow activity as directed Ensure plenty of rest for recovery Drink fluids for hydration Keep your appointments as scheduled Take your immunizations and boosters as scheduled If your symptoms worsen call your PCP, if no PCP go to Urgent Care Center or Emergency Room Smoking is Dangerous to Your Health. Avoid second hand smoke Call the 24-hour crisis hotline for domestic abuse at Michael Crain MD Oct 04, 2017 08:07
[2017-10-04] MEDS: glipiZIDE 5 MG TAB PO SCH (09:58)
== END 2017-10-04 13:35 | disposition home or self-care (01) | DRG 766 ==
LOC: H2EA 20:02 → H1EA 10-01 22:52
PROVIDERS: ADMIT Obstetrics & Gynecology; ATTEND Obstetrics & Gynecology
PROC: 3E0P7VZ Introduction of Hormone into Female Reproductive, Via Natural or Artificial Opening (ICD-10-PCS; 2017-09-30)
PROC: 10907ZC Drainage of Amniotic Fluid, Therapeutic from Products of Conception, Via Natural or Artificial Opening (ICD-10-PCS; 2017-09-30)
PROC: 10D00Z1 Extraction of Products of Conception, Low, Open Approach (ICD-10-PCS; principal; 2017-10-01)
PROC: 10H07YZ Insertion of Other Device into Products of Conception, Via Natural or Artificial Opening (ICD-10-PCS; 2017-10-01)
DX: O24.425 Gestational diabetes mellitus in childbirth, controlled by oral hypoglycemic drugs (principal); O36.8930 Maternal care for other specified fetal problems, third trimester, not applicable or unspecified; O61.0 Failed medical induction of labor; O76 Abnormality in fetal heart rate and rhythm complicating labor and delivery; O62.2 Other uterine inertia; Z3A.38 38 weeks gestation of pregnancy; Z37.0 Single live birth
CPT/HCPCS: 76818; 80048; 80307; 81001; 82805; 82948; 85025; 86900; 86901; 87086; J0131; J0690; J1885; J2274; J2405; J2590; J3010; J7120